=== PATIENT | female | born 1965 | race Caucasian/White ===

== ENCOUNTER 2021-07-31 06:11 | Observation (INO) ==
[2021-07-31] MEDS ORDERED: Ketorolac 30 MG/ML VIAL IVP ONE (06:25)
[2021-07-31] MEDS ORDERED: 0.9 % Sodium Chloride 1,000 ML IV ONE (06:25)
[2021-07-31] MEDS ORDERED: Morphine Sulfate 2 MG/ML SYRINGE IVP ONE (06:25)
[2021-07-31] MEDS ORDERED: Ondansetron 4 MG/2 ML VIAL IVP PRN (06:25)
[2021-07-31 06:39] LABS: Basophils # 0.1 K/mcL (0.0-0.2); Eosinophils # 0.3 K/mcL (0.0-0.6); Eosinophils % 4.5 %; Hematocrit 43.4 % (35.3-44.9); Hemoglobin 14.2 g/dL (11.5-15.4); Immature Granulocytes % 0.3 % (0-4); Lymphocytes # 1.8 K/mcL (0.6-4.6); Lymphocytes % 24.3 %; Mean Corpuscular HGB Conc 32.7 g/dL (31.6-35.5); Mean Corpuscular Hemoglobin 28.1 pg (28.0-33.3); Mean Corpuscular Volume 85.8 fL (83.0-100.0); Mean Platelet Volume 11.9 fL (9.4-12.4); Monocytes # 0.6 K/mcL (0.0-1.3); Monocytes % 7.8 %; Neutrophils # 4.6 K/mcL (1.6-8.9); Platelet Count 321 K/mcL (140-400); Red Blood Count 5.06 M/mcL (3.82-4.97); Red Cell Distribution Width 13.3 % (11.5-14.5); Segmented Neutrophils % 62.1 %; White Blood Count 7.3 K/mcL (4.3-11.1)
[2021-07-31 06:44] LABS: Bilirubin,Urine Negative (Negative); Blood,Urine Large (Negative); Calcium Oxalate Crystals,Urine Present per hpf; Clarity,Urine Turbid (Clear); Color,Urine Yellow (Yellow); Glucose,Urine (UA) Normal (Normal); Hyaline Casts,Urine Few per lpf (None Seen); Ketones,Urine Trace mg/dL (Negative); Leukocyte Esterase,Urine Moderate (Negative); Mucus,Urine Few per lpf (None-Few); Nitrite,Urine Negative (Negative); Protein,Urine 100 mg/dL (Neg-Trace); RBC,Urine TNTC per hpf (0-3); Specific Gravity,Urine > 1.030 (1.010-1.025); Squamous Epithelial Cell,Urine Few per hpf (None-Few); WBC,Urine 15-30 per hpf (0-3)
[2021-07-31] MEDS ORDERED: cefTRIAXone 1,000 MG in 0.9 % Sodium Chloride Mini Bag 100 ML IVPB ONE (06:55)
[2021-07-31 07:04] LABS: Alanine Aminotransferase 22 Units/L (7-52); Albumin 4.7 g/dL (3.5-5.7); Albumin/Globulin Ratio 1.6 (1.1-2.2); Alkaline Phosphatase 64 Units/L (34-104); Aspartate Amino Transferase 22 Units/L (13-39); BUN/Creatinine Ratio 20 (6-26); Bilirubin,Direct 0.1 mg/dL (0.0-0.2); Bilirubin,Indirect 0.4 mg/dL (0.0-1.0); Bilirubin,Total 0.5 mg/dL (0.3-1.0); Blood Urea Nitrogen 18 mg/dL (6-20); Calcium 10.2 mg/dL (8.6-10.3); Carbon Dioxide 29 mEq/L (23-29); Chloride 103 mEq/L (98-107); Glucose 113 mg/dL (70-105); Lipase 74 Units/L (11-82); Osmolality,Calculated 295 (280-300); Potassium 3.6 mEq/L (3.5-5.1); Sodium 141 mEq/L (136-145); Total Protein 7.7 g/dL (6.4-8.9); eGFR For African Americans > 60 (> 60); eGFR For Non-African Americans > 60 (> 60)
[2021-07-31] MEDS ORDERED: Naloxone 0.4 MG/ML INJ IVP PRN (08:08)
[2021-07-31] MEDS ORDERED: Melatonin 3 MG TABLET PO PRN (08:08)
[2021-07-31] MEDS ORDERED: D5% in Water 1,000 ML IVC PRN (08:22)
[2021-07-31] MEDS ORDERED: Dextrose 4 GM Chewable Tablets PO PRN ×2 (08:22)
[2021-07-31] MEDS ORDERED: *HR* Dextrose 50 % in Water (Syg) 50 ML SYRINGE IVP PRN (08:22)
[2021-07-31] MEDS ORDERED: *HR* Enoxaparin 40 MG/0.4 ML SYRINGE SQ ONE (09:01)
[2021-07-31] MEDS: 0.9 % Sodium Chloride 1,000 ML IVC SCH ×2 (10:48→16:51)
[2021-07-31] MEDS: Ondansetron 4 MG/2 ML VIAL IVP PRN ×2 (11:10→17:53)
[2021-07-31] MEDS: Morphine Sulfate 2 MG/ML SYRINGE IVP PRN ×2 (11:10→17:54)
[2021-07-31] MEDS: Insulin LISPRO 300 UNITS/3 ML VIAL SUBQ SCH ×2 (12:10→16:47)
[2021-08-01] MEDS: Ondansetron 4 MG/2 ML VIAL IVP PRN ×2 (00:05→05:28)
[2021-08-01] MEDS: Morphine Sulfate 2 MG/ML SYRINGE IVP PRN (00:06)
[2021-08-01 03:23] LABS: Basophils # 0.1 K/mcL (0.0-0.2); Basophils % 1.1 %; Eosinophils # 0.2 K/mcL (0.0-0.6); Eosinophils % 3.9 %; Hematocrit 34.7 % (35.3-44.9); Immature Granulocytes % 0.2 % (0-4); Lymphocytes # 1.5 K/mcL (0.6-4.6); Lymphocytes % 24.5 %; Mean Corpuscular HGB Conc 32.9 g/dL (31.6-35.5); Mean Corpuscular Hemoglobin 28.4 pg (28.0-33.3); Mean Corpuscular Volume 86.5 fL (83.0-100.0); Mean Platelet Volume 12.4 fL (9.4-12.4); Monocytes # 0.5 K/mcL (0.0-1.3); Monocytes % 8.5 %; Neutrophils # 3.8 K/mcL (1.6-8.9); Platelet Count 226 K/mcL (140-400); Red Blood Count 4.01 M/mcL (3.82-4.97); Red Cell Distribution Width 13.4 % (11.5-14.5); Segmented Neutrophils % 61.8 %; White Blood Count 6.1 K/mcL (4.3-11.1)
[2021-08-01 03:25] LABS: Hemoglobin 11.4 g/dL (11.5-15.4)
[2021-08-01 03:40] LABS: BUN/Creatinine Ratio 19 (6-26); Blood Urea Nitrogen 14 mg/dL (6-20); Calcium 8.7 mg/dL (8.6-10.3); Carbon Dioxide 26 mEq/L (23-29); Chloride 108 mEq/L (98-107); Glucose 113 mg/dL (70-105); Osmolality,Calculated 291 (280-300); Potassium 3.7 mEq/L (3.5-5.1); Sodium 140 mEq/L (136-145); eGFR For African Americans > 60 (> 60); eGFR For Non-African Americans > 60 (> 60)
[2021-08-01] MEDS ORDERED: *HR* Enoxaparin 40 MG/0.4 ML SYRINGE SQ SCH (06:00)
[2021-08-01] MEDS: Insulin LISPRO 300 UNITS/3 ML VIAL SUBQ SCH (06:59)
[2021-08-01] MEDS ORDERED: Ondansetron 4 MG/2 ML VIAL IVP PRN (07:01)
[2021-08-01] MEDS ORDERED: *HR* HYDROmorphone PF 0.5 MG/0.5 ML SYRINGE IVP PRN (07:01)
[2021-08-01] MEDS ORDERED: Lidocaine -MPF 2% 5 ML VIAL ONE (07:15)
[2021-08-01] MEDS ORDERED: *HR* Propofol 200 MG/20 ML VIAL IVP ONE (07:15)
[2021-08-01] MEDS ORDERED: *HR* Midazolam HCl 2 MG/2 ML VIAL ONE (07:15)
[2021-08-01] MEDS ORDERED: *HR* FentaNYL (PF) 100 MCG/2 ML VIAL ONE (07:15)
[2021-08-01] MEDS ORDERED: Acetaminophen IV 1,000 MG/100 ML BAG IVPB ONE (07:44)
[2021-08-01] MEDS ORDERED: Metoclopramide 10 MG/2 ML VIAL ONE (08:00)
[2021-08-01] MEDS ORDERED: Ketorolac 30 MG/ML VIAL ONE (08:09)
[2021-08-01] MEDS ORDERED: cefTRIAXone 1,000 MG in 0.9 % Sodium Chloride 10 ML IVPB SCH (09:00)
[2021-08-01] MEDS ORDERED: Loratadine 10 MG TABLET PO SCH (09:00)
[2021-08-01] MEDS ORDERED: Linaclotide [Linzess] 145 MCG Capsule PO SCH (09:00)
[2021-08-01] MEDS ORDERED: atenoloL 50 MG TABLET PO SCH (09:00)
[2021-08-01] MEDS ORDERED: Spironolactone 25 MG TABLET PO SCH (09:00)
[2021-08-01 09:19] LABS: Hematocrit 36.9 % (35.3-44.9)
[2021-08-01 11:25] VITALS: O2SAT 95
[2021-08-01 11:26] VITALS: BP 107/60; PULSE 63; TEMP 98.3
== END 2021-08-01 11:29 | disposition home or self-care (01) ==
LOC: EMEROOARM 06:11 → 3BNU 06:11 → SUATTDRO 08:18 → 3BNU 09:51
PROVIDERS: ADMIT Hospitalist; ATTEND Family Medicine

== ENCOUNTER 2021-08-15 07:21 | Inpatient (IN) ==
[2021-08-15] MEDS ORDERED: 0.9 % Sodium Chloride 1,000 ML IV ONE (07:39)
[2021-08-15] MEDS ORDERED: Morphine Sulfate 2 MG/ML SYRINGE IVP ONE (07:39)
[2021-08-15] MEDS ORDERED: Ondansetron 4 MG/2 ML VIAL IVP PRN (07:39)
[2021-08-15] MEDS ORDERED: cefTRIAXone 1,000 MG in 0.9 % Sodium Chloride Mini Bag 100 ML IVPB ONE (07:40)
[2021-08-15 07:54] LABS: Bacteria,Urine Few per hpf (None-Few); Bilirubin,Urine Negative (Negative); Blood,Urine Negative (Negative); Clarity,Urine Turbid (Clear); Color,Urine Yellow (Yellow); Glucose,Urine (UA) Normal (Normal); Ketones,Urine Negative (Negative); Leukocyte Esterase,Urine Small (Negative); Mucus,Urine Few per lpf (None-Few); Nitrite,Urine Negative (Negative); PH,Urine 7.5 pH Units (5.0-8.0); Protein,Urine Trace mg/dL (Neg-Trace); Specific Gravity,Urine 1.022 (1.010-1.025); Squamous Epithelial Cell,Urine Few per hpf (None-Few)
[2021-08-15 08:17] LABS: Basophils # 0.1 K/mcL (0.0-0.2); Basophils % 0.5 %; Eosinophils # 0.2 K/mcL (0.0-0.6); Eosinophils % 1.5 %; Hematocrit 38.1 % (35.3-44.9); Hemoglobin 12.6 g/dL (11.5-15.4); Immature Granulocytes % 0.4 % (0-4); Lymphocytes # 0.9 K/mcL (0.6-4.6); Lymphocytes % 6.9 %; Mean Corpuscular HGB Conc 33.1 g/dL (31.6-35.5); Mean Corpuscular Volume 84.7 fL (83.0-100.0); Mean Platelet Volume 11.6 fL (9.4-12.4); Monocytes # 1.1 K/mcL (0.0-1.3); Monocytes % 8.4 %; Neutrophils # 10.9 K/mcL (1.6-8.9); Platelet Count 336 K/mcL (140-400); Red Cell Distribution Width 13.2 % (11.5-14.5); Segmented Neutrophils % 82.3 %; White Blood Count 13.3 K/mcL (4.3-11.1)
[2021-08-15 08:41] LABS: Alanine Aminotransferase 17 Units/L (7-52); Albumin 4.2 g/dL (3.5-5.7); Albumin/Globulin Ratio 1.4 (1.1-2.2); Alkaline Phosphatase 67 Units/L (34-104); Aspartate Amino Transferase 18 Units/L (13-39); BUN/Creatinine Ratio 17 (6-26); Bilirubin,Direct 0.3 mg/dL (0.0-0.2); Bilirubin,Indirect 0.5 mg/dL (0.0-1.0); Bilirubin,Total 0.8 mg/dL (0.3-1.0); Blood Urea Nitrogen 19 mg/dL (6-20); Calcium 9.4 mg/dL (8.6-10.3); Carbon Dioxide 27 mEq/L (23-29); Chloride 102 mEq/L (98-107); Globulin 3.1 g/dL (2.4-3.5); Glucose 158 mg/dL (70-105); Lipase 30 Units/L (11-82); Osmolality,Calculated 290 (280-300); Sodium 137 mEq/L (136-145); Total Protein 7.3 g/dL (6.4-8.9); eGFR For African Americans > 60 (> 60); eGFR For Non-African Americans 51 (> 60)
[2021-08-15] MEDS ORDERED: Ketorolac 30 MG/ML VIAL IVP ONE (08:49)
[2021-08-15] MEDS ORDERED: Naloxone 0.4 MG/ML INJ IVP PRN (09:06)
[2021-08-15] MEDS ORDERED: Dextrose 4 GM Chewable Tablets PO PRN ×2 (09:10)
[2021-08-15] MEDS ORDERED: D5% in Water 1,000 ML IVC PRN (09:10)
[2021-08-15] MEDS ORDERED: *HR* Dextrose 50 % in Water (Syg) 50 ML SYRINGE IVP PRN (09:10)
[2021-08-15] MEDS: *HR* HYDROmorphone (PF) 1 MG/ML SYRINGE IVP PRN ×3 (09:49→16:40)
[2021-08-15] MEDS: Ringers Solution, Lactated 1,000 ML IVC SCH ×2 (11:55→23:10)
[2021-08-15] MEDS ORDERED: Ketorolac 30 MG/ML VIAL IVP SCH (12:00)
[2021-08-15] MEDS: atenoloL 50 MG TABLET PO SCH (12:04)
[2021-08-15] MEDS: Insulin LISPRO 300 UNITS/3 ML VIAL SUBQ SCH ×2 (12:33→18:49)
[2021-08-15] MEDS ORDERED: 0.9 % Sodium Chloride 1,000 ML IVC SCH (17:00)
[2021-08-15] MEDS: *HR* Heparin 5,000 UNIT/ML VIAL SQ SCH (18:48)
[2021-08-15] MEDS: 0.9 % Sodium Chloride 1,000 ML IVC SCH (20:21)
[2021-08-16] MEDS: *HR* Heparin 5,000 UNIT/ML VIAL SQ SCH ×2 (05:00→17:10)
[2021-08-16] MEDS: Ondansetron 4 MG/2 ML VIAL IVP PRN (05:36)
[2021-08-16 05:43] LABS: Basophils # 0.1 K/mcL (0.0-0.2); Basophils % 0.4 %; Eosinophils # 0.3 K/mcL (0.0-0.6); Hematocrit 35.2 % (35.3-44.9); Hemoglobin 11.6 g/dL (11.5-15.4); Immature Granulocytes % 0.5 % (0-4); Lymphocytes # 1.1 K/mcL (0.6-4.6); Lymphocytes % 8.3 %; Mean Corpuscular Hemoglobin 28.4 pg (28.0-33.3); Mean Corpuscular Volume 86.1 fL (83.0-100.0); Mean Platelet Volume 11.4 fL (9.4-12.4); Monocytes # 1.4 K/mcL (0.0-1.3); Monocytes % 10.7 %; Neutrophils # 10.1 K/mcL (1.6-8.9); Platelet Count 272 K/mcL (140-400); Red Blood Count 4.09 M/mcL (3.82-4.97); Red Cell Distribution Width 13.2 % (11.5-14.5); Segmented Neutrophils % 78.1 %
[2021-08-16 06:31] LABS: BUN/Creatinine Ratio 16 (6-26); Blood Urea Nitrogen 17 mg/dL (6-20); Calcium 8.8 mg/dL (8.6-10.3); Carbon Dioxide 23 mEq/L (23-29); Chloride 100 mEq/L (98-107); Glucose 110 mg/dL (70-105); Osmolality,Calculated 276 (280-300); Sodium 132 mEq/L (136-145); eGFR For African Americans > 60 (> 60); eGFR For Non-African Americans 52 (> 60)
[2021-08-16] MEDS: Insulin LISPRO 300 UNITS/3 ML VIAL SUBQ SCH ×3 (07:38→17:02)
[2021-08-16] MEDS ORDERED: *HR* Belladonna Alkaloids/Opium 30 MG RECTAL SUPPOSITORY RC PRN (08:06)
[2021-08-16] MEDS ORDERED: Hyoscyamine SL 0.125 MG TAB.SUBL SL PRN (08:06)
[2021-08-16] MEDS: 0.9 % Sodium Chloride 1,000 ML IVC SCH ×2 (08:59→09:50)
[2021-08-16] MEDS: atenoloL 50 MG TABLET PO SCH (09:00)
[2021-08-16] MEDS: Spironolactone 25 MG TABLET PO SCH (09:00)
[2021-08-16] MEDS: cefTRIAXone 2,000 MG in 0.9 % Sodium Chloride 20 ML IVP SCH (09:33)
[2021-08-16] MEDS: Ketorolac 30 MG/ML VIAL IVP SCH ×2 (11:52→17:10)
[2021-08-16] MEDS ORDERED: Insulin LISPRO 300 UNITS/3 ML VIAL SUBQ SCH (12:00)
[2021-08-16] MEDS ORDERED: Ketorolac 30 MG/ML VIAL IVP PRN (18:14)
[2021-08-17] MEDS: 0.9 % Sodium Chloride 1,000 ML IVC SCH ×4 (00:47→20:05)
[2021-08-17] MEDS: Ondansetron 4 MG/2 ML VIAL IVP PRN ×2 (03:50→11:41)
[2021-08-17] MEDS: *HR* Heparin 5,000 UNIT/ML VIAL SQ SCH ×2 (07:24→17:10)
[2021-08-17] MEDS: Insulin LISPRO 300 UNITS/3 ML VIAL SUBQ SCH ×2 (07:43→11:36)
[2021-08-17] MEDS: atenoloL 50 MG TABLET PO SCH (09:43)
[2021-08-17] MEDS: cefTRIAXone 2,000 MG in 0.9 % Sodium Chloride 20 ML IVP SCH (09:43)
[2021-08-17] MEDS: Spironolactone 25 MG TABLET PO SCH (09:43)
[2021-08-17 10:53] LABS: Basophils % 0.3 %; Red Cell Distribution Width 13.2 % (11.5-14.5)
[2021-08-17 11:05] LABS: Eosinophils # 0.2 K/mcL (0.0-0.6); Eosinophils % 2.1 %; Hematocrit 28.4 % (35.3-44.9); Hemoglobin 9.3 g/dL (11.5-15.4); Immature Granulocytes % 0.7 % (0-4); Lymphocytes # 0.6 K/mcL (0.6-4.6); Lymphocytes % 5.6 %; Mean Corpuscular HGB Conc 32.7 g/dL (31.6-35.5); Mean Corpuscular Hemoglobin 28.1 pg (28.0-33.3); Mean Corpuscular Volume 85.8 fL (83.0-100.0); Mean Platelet Volume 11.4 fL (9.4-12.4); Monocytes % 9.4 %; Neutrophils # 8.7 K/mcL (1.6-8.9); Platelet Count 240 K/mcL (140-400); Red Blood Count 3.31 M/mcL (3.82-4.97); Segmented Neutrophils % 81.9 %; White Blood Count 10.7 K/mcL (4.3-11.1)
[2021-08-17 11:13] LABS: BUN/Creatinine Ratio 13 (6-26); Blood Urea Nitrogen 13 mg/dL (6-20); Calcium 8.4 mg/dL (8.6-10.3); Carbon Dioxide 24 mEq/L (23-29); Chloride 103 mEq/L (98-107); Glucose 95 mg/dL (70-105); Magnesium 1.8 mg/dL (1.6-2.6); Osmolality,Calculated 278 (280-300); Phosphorous 2.3 mg/dL (2.7-4.5); Sodium 134 mEq/L (136-145); eGFR For African Americans > 60 (> 60); eGFR For Non-African Americans 57 (> 60)
[2021-08-17] MEDS ORDERED: *HR* Midazolam HCl 2 MG/2 ML VIAL ONE (17:22)
[2021-08-17] MEDS ORDERED: *HR* FentaNYL (PF) 100 MCG/2 ML VIAL ONE (17:22)
[2021-08-17] MEDS ORDERED: Scopolamine Patch 1.5 MG PATCH.TD72 TD ONE (17:34)
[2021-08-17] MEDS ORDERED: Scopolamine Patch 1.5 MG PATCH.TD72 ONE (17:41)
[2021-08-17] MEDS ORDERED: *HR* Labetalol 20 MG/4 ML SYRINGE IVP PRN (17:47)
[2021-08-17] MEDS ORDERED: *HR* OxyCODONE Immed Rel 5 MG TABLET PO PRN (17:47)
[2021-08-17] MEDS ORDERED: Ondansetron 4 MG/2 ML VIAL IVP PRN ×2 (17:47→19:45)
[2021-08-17] MEDS ORDERED: Albuterol 2.5 MG/3 ML NEBULIZER IH PRN (17:47)
[2021-08-17] MEDS ORDERED: Promethazine 6.25 MG in Water for inj. (sterile) 20 ML IVPB PRN (17:47)
[2021-08-17] MEDS ORDERED: *HR* HYDROmorphone PF 0.5 MG/0.5 ML SYRINGE IVP PRN (17:47)
[2021-08-17] MEDS ORDERED: Insulin LISPRO 300 UNITS/3 ML VIAL SUBQ SCH (18:00)
[2021-08-17] MEDS ORDERED: Acetaminophen IV 1,000 MG/100 ML BAG IVPB ONE ×2 (18:06→18:11)
[2021-08-17] MEDS ORDERED: *HR* HYDROMORPHONE 2 MG/ML VIAL ONE (18:20)
[2021-08-17] MEDS ORDERED: *HR* Belladonna Alkaloids/Opium 30 MG RECTAL SUPPOSITORY RC PRN (19:45)
[2021-08-17] MEDS ORDERED: *HR* Dextrose 50 % in Water (Syg) 50 ML SYRINGE IVP PRN (19:45)
[2021-08-17] MEDS ORDERED: Hyoscyamine SL 0.125 MG TAB.SUBL SL PRN (19:45)
[2021-08-17] MEDS ORDERED: Dextrose 4 GM Chewable Tablets PO PRN ×2 (19:45)
[2021-08-17] MEDS ORDERED: Naloxone 0.4 MG/ML INJ IVP PRN (19:45)
[2021-08-17] MEDS ORDERED: Ketorolac 30 MG/ML VIAL IVP PRN (19:45)
[2021-08-17] MEDS ORDERED: D5% in Water 1,000 ML IVC PRN (19:45)
[2021-08-18] MEDS: Insulin LISPRO 300 UNITS/3 ML VIAL SUBQ SCH ×3 (00:22→15:12)
[2021-08-18] MEDS: 0.9 % Sodium Chloride 1,000 ML IVC SCH (05:48)
[2021-08-18] MEDS ORDERED: *HR* Heparin 5,000 UNIT/ML VIAL SQ SCH (06:00)
[2021-08-18 07:54] VITALS: PULSE 61
[2021-08-18] MEDS ORDERED: Spironolactone 25 MG TABLET PO SCH (09:00)
[2021-08-18] MEDS ORDERED: atenoloL 50 MG TABLET PO SCH (09:00)
[2021-08-18] MEDS ORDERED: cefTRIAXone 2,000 MG in 0.9 % Sodium Chloride 20 ML IVP SCH (09:00)
[2021-08-18 09:56] LABS: Basophils % 0.1 %; Hematocrit 29.5 % (35.3-44.9); Hemoglobin 9.2 g/dL (11.5-15.4); Immature Granulocytes % 0.8 % (0-4); Lymphocytes # 0.6 K/mcL (0.6-4.6); Lymphocytes % 5.5 %; Mean Corpuscular HGB Conc 31.2 g/dL (31.6-35.5); Mean Corpuscular Hemoglobin 27.3 pg (28.0-33.3); Mean Corpuscular Volume 87.5 fL (83.0-100.0); Mean Platelet Volume 11.7 fL (9.4-12.4); Monocytes # 0.7 K/mcL (0.0-1.3); Monocytes % 6.2 %; Neutrophils # 9.8 K/mcL (1.6-8.9); Platelet Count 262 K/mcL (140-400); Red Blood Count 3.37 M/mcL (3.82-4.97); Red Cell Distribution Width 13.2 % (11.5-14.5); Segmented Neutrophils % 87.4 %; White Blood Count 11.2 K/mcL (4.3-11.1)
[2021-08-18 10:13] LABS: BUN/Creatinine Ratio 16 (6-26); Blood Urea Nitrogen 14 mg/dL (6-20); Calcium 8.8 mg/dL (8.6-10.3); Carbon Dioxide 25 mEq/L (23-29); Chloride 104 mEq/L (98-107); Glucose 175 mg/dL (70-105); Magnesium 1.9 mg/dL (1.6-2.6); Osmolality,Calculated 289 (280-300); Phosphorous 1.6 mg/dL (2.7-4.5); Potassium 3.8 mEq/L (3.5-5.1); Sodium 137 mEq/L (136-145); eGFR For African Americans > 60 (> 60); eGFR For Non-African Americans > 60 (> 60)
[2021-08-18 11:42] VITALS: BP 107/65; TEMP 98.2; O2SAT 100
== END 2021-08-18 15:51 | disposition home or self-care (01) | DRG 661 ==
LOC: 3ANU 07:21 → EMEROOARM 07:21 → SUATTDRO 10:15 → 3ANU 11:12
PROVIDERS: ADMIT Internal Medicine; ATTEND Internal Medicine